=== PATIENT | female | born 1940 | race Caucasian/White ===

== ENCOUNTER 2024-06-03 14:35 | Outpatient (CLI) | payer MEDICARE, BC | END 2024-06-03 14:36 | disposition home or self-care (01) | LOC: BICMAMMO 14:35 | PROVIDERS: ATTEND Family Medicine | DX: N63.0 Unspecified lump in unspecified breast (principal) | CPT/HCPCS: 76642; 77066; G0279 ==

== ENCOUNTER 2024-07-15 13:00 | Outpatient (CLI) | payer MEDICARE, BC | END 2024-07-15 13:01 | disposition home or self-care (01) | LOC: BICMAMMO 13:00 | PROVIDERS: ATTEND Family Medicine | DX: M81.0 Age-related osteoporosis without current pathological fracture (principal); M85.851 Other specified disorders of bone density and structure, right thigh; M85.852 Other specified disorders of bone density and structure, left thigh | CPT/HCPCS: 77080 ==